=== PATIENT | female | born 1955 | race Hispanic/Latino ===

== ENCOUNTER → 2019-08-25 | Outpatient (CLI) | payer MEDICARE, OTHER ==
--- NOTE | 2019-08-25 10:02 | Diagnostic Imaging Report ---
MRI SPINE CERVICAL WO HISTORY: Neck and left shoulder pain COMPARISON: None. TECHNIQUE: Sagittal T1, sagittal T2, sagittal inversion recovery, axial T2, axial T1, and axial T2 GRE weighted MR images of the cervical spine were obtained without intravenous contrast. DISCUSSION: Alignment: Straightening of the cervical spine lordosis. No scoliosis. Vertebrae: No definite evidence for fractures, or neoplasm. Cervicomedullary junction: No abnormalities. Spinal cord: Focal T2 hyperintensity in the right central cord at C5 is associated with mild local volume loss; this is compatible with myelomalacia. The ventral cord is mildly indented by disc at C4-C5. The cord is otherwise normal in signal and morphology from the foramen magnum through T4. Soft tissues: No signal abnormalities. Mild to moderate multilevel disc degeneration is most prominent at C5-C6 and C6-C7. There are nonspecific mild inflammatory endplate changes on the right at C5-C6 and, to a lesser extent, on the right at C6-C7. C2-C3: Patent canal and foramina. C3-C4: Mild canal stenosis due to posterior disc osteophyte complex and ligamentum flavum thickening. Mild bilateral foraminal stenoses due to uncovertebral and facet arthrosis. C4-C5: Minimal grade 1 anterolisthesis of C4 and C5 is due to facet arthrosis, left greater than right. There is mild periarticular edema along the left C4-C5 facet joint. Moderate to severe canal stenosis due to posterior disc osteophyte complex and ligamentum flavum thickening. Moderate right and severe left foraminal stenoses due to uncovertebral and facet arthrosis. C5-C6: Moderate canal stenosis due to posterior disc osteophyte complex and ligamentum flavum thickening. Moderate right and severe left foraminal stenoses due to uncovertebral and facet arthrosis. C6-C7: Moderate canal stenosis due to posterior disc osteophyte complex and ligamentum flavum thickening. Mild right and severe left foraminal stenoses due to uncovertebral and facet arthrosis. C7-T1: Patent canal and foramina. IMPRESSION: 1. Mild to moderate multilevel disc degeneration, most prominent at C5-C6 and C6-C7 with nonspecific mild inflammatory endplate changes. 2. Minimal grade 1 anterolisthesis of C4 on C5 due to facet arthrosis, left greater than right. Possible mild left C4-C5 facet synovitis. 3. Multilevel degenerative canal stenoses - moderate to severe at C4-C5; moderate at C5-C6 and C6-C7. 4. Associated mild focal right myelomalacia at C5. 5. Multilevel degenerative foraminal stenoses - moderate right and severe left at both C4-C5 and C5-C6; severe on the left at C6-C7. Signed by: Dr. Norbert Sam M.D. on 08/25/2019 9:59 AM
--- NOTE | 2019-08-25 10:09 | Diagnostic Imaging Report ---
MRI SPINE LUMBAR WO HISTORY: Lumbar radiculopathy COMPARISON: None. TECHNIQUE: Sagittal T1, sagittal T2, sagittal STIR, axial T2, coronal T2, and axial proton density weighted images of the lumbar spine were obtained without contrast. DISCUSSION: Number of non-rib bearing lumbar vertebral bodies: 5. Alignment: Normal lordosis. No scoliosis. Vertebrae: No fractures, or neoplasm. Conus medullaris: Normal, ends at L1-L2. Cauda equina: No masses or arachnoiditis. Posterior paraspinal muscles: Well preserved. No signal abnormalities. Soft tissues: Approximately 2.7 cm T2 hyperintense lesion in the right kidney is likely a cyst. Mild renal pelviectasis is present, left greater than right. Multilevel disc degeneration is severe at L4-L5 and L5-S1. There are nonspecific mild inflammatory endplate changes on the left at L4-L5 and, to a lesser extent, at L5-S1 on the right. T12-L1: Patent canal and foramina. L1-L2: Disc bulge without significant canal or foraminal stenosis. L2-L3: Disc bulge without significant canal or foraminal stenosis. L3-L4: Mild canal stenosis due to disc bulge and ligamentum flavum thickening. No significant foraminal stenosis. L4-L5: Moderate canal stenosis due to disc bulge and ligamentum flavum thickening. Both lateral recesses are effaced. Mild right and moderate left foraminal stenoses due to disc bulge and facet arthrosis. L5-S1: Minimal grade 1 anterolisthesis of L5 on S1 due to prominent facet arthrosis. Mild canal stenosis due to uncovered disc bulge. Mild to moderate bilateral foraminal stenoses due to uncovered disc bulge and facet arthrosis. IMPRESSION: 1. Multilevel disc degeneration, severe at L4-L5 and L5-S1 with nonspecific mild inflammatory endplate changes. 2. Minimal grade 1 anterolisthesis of L5 on S1 due to prominent bilateral L5-S1 facet arthrosis. 3. Multilevel degenerative canal stenoses - moderate at L4-L5. 4. Multilevel degenerative foraminal stenoses - mild right and moderate left at L4-L5; mild to moderate bilaterally at L5-S1. Signed by: Dr. Norbert Sam M.D. on 08/25/2019 10:07 AM
--- NOTE | 2019-08-25 10:34 | Diagnostic Imaging Report ---
MRI of the left tibia/fibula without contrast. History: Chronic intractable pain at the anterior left tibia/fibula Technique: Multiplanar multisequence MRI of the left tibia/fibula without contrast. Comparison: None Findings: No acute fracture, subluxation or avascular necrosis. Small enchondroma in the proximal shaft of the tibia best seen on axial image 5. No focal bone marrow edema or cortical destruction. Minimal soft tissue edema along the anterior margin of the proximal/mid tibia could be due to a mild stress reaction. This is best seen on axial image 15. No underlying bone marrow edema. The visualized muscles are normal in size, signal intensity and morphology. The visualized neurovascular bundles are intact. No abnormal fluid collection Impression: Minimal soft tissue edema along the anterior margin of the proximal/mid tibia could be due to a mild stress reaction. This is best seen on axial image 15. No underlying bone marrow edema. Signed by: Dr. Rayray Hanna M.D. on 08/25/2019 10:31 AM
== END ==
LOC: MRI 07:56
PROVIDERS: ATTEND Emergency Medicine
DX: G89.29 Other chronic pain (principal); M54.12 Radiculopathy, cervical region
CPT/HCPCS: 72141; 72148

== ENCOUNTER → 2022-11-07 | Outpatient (CLI) | payer MEDICARE, OTHER | LOC: MRI 09:59 | PROVIDERS: ATTEND Emergency Medicine | DX: M25.561 Pain in right knee (principal) ==